=== PATIENT | male | born 1945 | race Caucasian/White ===

== ENCOUNTER 2016-08-10 12:15 | Outpatient (CLI) | payer OTHER ==
[2016-08-10 12:33] LABS: HEMATOCRIT 37.6 % (42.0-52.0); HEMOGLOBIN 12.4 g/dl (14.0-18.0); MEAN CORPUSCULAR HEMOGLOBIN 28.2 pg (27.0-31.0); MEAN CORPUSCULAR VOLUME 85.6 fl (80.0-94.0); RED BLOOD COUNT 4.39 10^6/ul (4.70-6.10); WHITE BLOOD COUNT 9.48 K/ul (4.2-10.2)
[2016-08-10 12:37] LABS: BILIRUBIN,URINE Negative (NEGATIVE); KETONES,URINE Negative (NEGATIVE); LEUKOCYTE ESTERASE ,URINE Negative (NEGATIVE); NITRITE,URINE Negative (NEGATIVE); PH,URINE 5.5 (5-9); PROTEIN,URINE 1+ (NEGATIVE); URINE, BLOOD Negative (NEGATIVE)
[2016-08-10 12:41] LABS: ADD URINE MICROSCOPIC YES
[2016-08-10 13:19] LABS: ALBUMIN 3.3 g/dL (3.4-5.0); ALBUMIN/GLOBULIN RATIO 0.79; ANION GAP 12.7; BILIRUBIN,TOTAL 0.31 mg/dL (0.00-1.20); BUN/CREATININE RATIO 12.66; CALCIUM 9.1 mg/dL (8.2-10.2); CREATININE 2.29 mg/dL (0.60-1.10); MAGNESIUM 2.2 mg/dL (1.7-2.2); PHOSPHORUS 2.9 mg/dL (2.3-3.7); POTASSIUM 3.7 mmol/L (3.5-5.1); TOTAL PROTEIN 7.5 g/dL (5.8-8.1); URIC ACID 5.6 mg/dL (2.6-7.2)
[2016-08-11 08:22] LABS: URINE CREATINE 189.3 mg/dL (Not Estab.)
== END 2016-08-10 12:16 | disposition home or self-care (01) ==
LOC: LAB 12:15
PROVIDERS: ATTEND Nurse Practitioner
DX: N18.4 Chronic kidney disease, stage 4 (severe) (principal); E55.9 Vitamin D deficiency, unspecified
CPT/HCPCS: 36415; 80053; 81001; 82306; 82570; 83735; 83970; 84100; 84156; 84550; 85027

== ENCOUNTER 2017-02-23 09:55 | Outpatient (CLI) ==
[2017-02-23 10:24] LABS: HEMATOCRIT 37.9 % (42.0-52.0); HEMOGLOBIN 12.5 g/dl (14.0-18.0); MEAN CORPUSCULAR VOLUME 87.9 fl (80.0-94.0); RED BLOOD COUNT 4.31 10^6/ul (4.70-6.10); WHITE BLOOD COUNT 7.55 K/ul (4.2-10.2)
[2017-02-23 10:26] LABS: BILIRUBIN,URINE Negative (NEGATIVE); KETONES,URINE Negative (NEGATIVE); LEUKOCYTE ESTERASE ,URINE Negative (NEGATIVE); NITRITE,URINE Negative (NEGATIVE); PROTEIN,URINE 1+ (NEGATIVE); URINE, BLOOD Negative (NEGATIVE)
[2017-02-23 10:45] LABS: ADD URINE MICROSCOPIC YES
[2017-02-23 11:01] LABS: ALBUMIN 3.3 g/dL (3.4-5.0); ALBUMIN/GLOBULIN RATIO 0.87; ANION GAP 12.9; BILIRUBIN,TOTAL 0.3 mg/dL (0.00-1.20); MAGNESIUM 3.1 mg/dL (1.7-2.2); POTASSIUM 3.9 mmol/L (3.5-5.1); TOTAL PROTEIN 7.1 g/dL (5.8-8.1); URIC ACID 5.8 mg/dL (2.6-7.2)
[2017-02-24 08:39] LABS: URINE CREATININE 193.2 mg/dL (Not Estab.); URINE TOTAL PROTEIN 40.2 mg/dL (Not Estab.)
== END 2017-02-23 09:56 | disposition home or self-care (01) ==
LOC: LAB 09:55
PROVIDERS: ATTEND Nurse Practitioner
DX: N18.4 Chronic kidney disease, stage 4 (severe) (principal); E55.9 Vitamin D deficiency, unspecified
CPT/HCPCS: 36415; 80053; 81001; 82306; 82570; 83735; 83970; 84100; 84156; 84550; 85027

== ENCOUNTER 2017-08-23 07:32 | Outpatient (CLI) | END 2017-08-23 07:33 | disposition home or self-care (01) | LOC: LAB 07:32 | PROVIDERS: ATTEND Nurse Practitioner | DX: N18.3 Chronic kidney disease, stage 3 (moderate) (principal); E55.9 Vitamin D deficiency, unspecified | CPT/HCPCS: 36415; 80053; 81001; 82306; 82570; 83735; 83970; 84100; 84156; 84550; 85027 ==

== ENCOUNTER 2018-08-14 08:58 | Outpatient (CLI) | END 2018-08-14 08:59 | disposition home or self-care (01) | LOC: LAB 08:58 | PROVIDERS: ATTEND Nurse Practitioner | DX: N18.4 Chronic kidney disease, stage 4 (severe) (principal); E55.9 Vitamin D deficiency, unspecified | CPT/HCPCS: 36415; 80053; 81001; 82306; 82570; 83735; 83970; 84100; 84156; 84550; 85025; 85027 ==